=== PATIENT | male | born 1960 ===

== ENCOUNTER 2024-09-06 19:53 | Outpatient (REF) | payer BC, SELFPAY ==
[2024-09-06 20:09] LABS: Abs Immature Grans 0.01 10^3/uL (0.0-0.06); Absolute Basophil Count 0.05 10^3/uL (0.0-0.2); Absolute Eosinophil Count 0.13 10^3/uL (0.0-0.7); Absolute Lymphocyte Count 1.54 10^3/uL (1.2-3.4); Absolute Neutrophil Count 3.48 10^3/uL (1.2-6.7); Basophils % 0.9 %; Eosinophils % 2.3 %; HCT 43.9 % (40.0-50.0); Immature Grans % 0.2 %; MCH 33.4 pg (27.0-33.0); MCHC 34.2 % (32.0-36.0); MCV 98 fL (80-95); MPV 10.3 fL (8.0-11.0); Monocytes % 8.8 %; Neutrophils % 60.8 %; Platelet Count 197 10^3/uL (130-400); RBC 4.49 10^6/uL (4.36-5.78); RDW 12.6 % (11.8-14.1); RDW-SD 45.3 fL; WBC 5.71 10^3/uL (4.4-10.8)
[2024-09-06 20:28] LABS: ALT 42 U/L (16-63); AST 41 U/L (15-37); Albumin 4.3 g/dL (3.4-5.0); Alkaline Phosphatase 57 U/L (46-116); Anion Gap 8.4 mmol/L (3-11); BUN 17 mg/dL (7-18); CO2 29.6 mmol/L (21.0-32.0); CREATININE 1.1 mg/dL (0.70-1.30); Calcium 9.6 mg/dL (8.5-10.1); Chloride 104 mmol/L (98-107); Glucose 95 mg/dL (74-106); Sodium 142 mmol/L (136-145); Total Protein 7.4 g/dL (6.4-8.2); Uric Acid 6.2 mg/dL (3.5-7.2)
== END 2024-09-06 19:54 | disposition home or self-care (01) ==
LOC: NCHCN 19:53
PROVIDERS: Visit Provider Physician Assistant
DX: E78.5 Hyperlipidemia, unspecified (principal)
CPT/HCPCS: 80053; 84550; 85025